=== PATIENT | female | born 1955 | race Two or more races ===

== ENCOUNTER 2018-07-01 10:53 | Inpatient (IN) | payer SELFPAY ==
--- NOTE | 2018-07-01 11:05 | EDPHY ---
H & P Time Seen by Provider: 07/01/18 11:04 HPI/ROS: CHIEF COMPLAINT: Dizziness HISTORY OF PRESENT ILLNESS: History from daughter, initially awaiting manager intel. Patient had dialysis for the 1st time ever 06/20/18 at [facility]. Presents today after last dialysis on Sunday with dizziness. Daughter is concerned she may need to be dialyzed again. No abdominal pain or vomiting, no change of mental status, no fever or chills. The patient says when she stands up or moves her head her dizziness gets worse. Not associated with trouble with speech or motor or sensory. REVIEW OF SYSTEMS: Eye: no change in vision ENT: no sore throat Cardiac: no chest pain or syncope Pulmonary: no cough or SOB Abdomen: no vomiting, diarrhea, abdominal pain Musculoskeletal: no back pain Skin: no rash Neuro: no headache Constitutional: no fever : no urinary symptoms A comprehensive 10 point review of systems is otherwise negative aside from elements mentioned in the history of present illness. PAST MEDICAL HISTORY: Kidney disease, recent dialysis. CAD stent placement, DM , hypertension, thyroid Social history: Primary language is Malaysian, director behavioral health used, daughter speaks Portuguese General Appearance: Alert and cooperative. Eyes: No scleral icterus. Pupils equal reactive extraocular motion intact, looking to the right and moving her head to the right reproduces symptoms. ENT, Mouth: Normal mucous membranes. Normal tympanic membranes. Respiratory: Normal respiratory effort, breath sounds equal, lungs are clear to auscultation. Cardiovascular: Regular rate and rhythm. Dialysis catheter present right subclavian. Gastrointestinal: Abdomen is soft and non tender. Neurological: Alert, face symmetric, normal motor and sensory in extremities. Skin: Warm and dry, no rashes. Musculoskeletal: No peripheral edema. Psychiatric: Not agitated. Emergency Department course/MDM: I-STAT and EKG performed, screening i-STAT potassium is 5. She is not clinically fluid overloaded. 1130: Case management consulted for arrangement for future dialysis needs. Meclizine 25 mg orally, more likely peripheral vertigo as compared to central. 1144: Na 128, K 5.3, BUN 55, Creat 6.9; discussed with Bhaskar, admit for dialysis as no outpatient access, hyperkalemic. Does not require emergent ED treatment for hyperkalemia. Smoking Status: Never smoked Constitutional: Initial Vital Signs Temperature (C) 37 C 07/01/18 10:55 Heart Rate 80 07/01/18 10:55 Respiratory Rate 18 07/01/18 10:55 Blood Pressure 172/74 H 07/01/18 10:55 O2 Sat (%) 93 07/01/18 10:55 O2 Delivery Mode Room Air Allergies/Adverse Reactions: Penicillins Allergy (Mild, Verified 07/01/18 10:58) GI Home Medications: Medication Instructions Recorded Ferrous Sulfate [Ferrous Sulf 325 325 mg PO DAILY 07/01/18 MG (*)] Furosemide [Lasix 80 MG (*)] 80 mg PO BID 07/01/18 amLODIPine BESYLATE [Norvasc 10 mg 10 mg PO DAILY 07/01/18 (*)] Medical Decision Making - Diagnostics EKG Interpretation: 12-lead EKG interpreted by me; official reading is in computer system. My interpretation is sinus rhythm rate 77 with normal intervals. Differential Diagnosis: Differential diagnosis considered for dizziness including but not limited to peripheral and central causes of vertigo, orthostatic causes including dehydration, and blood loss. Consult/Admit Bed Type: [place] [id number] - Data Points Laboratory Results: Laboratory Results 07/01/18 11:15 07/01/18 11:15 07/01/18 07/01/18 07/01/18 11:22 11:15 11:15 WBC 10.98 10^3/uL H 10^3/uL (3.80-9.50) RBC 2.69 10^6/uL L 10^6/uL (4.18-5.33) Hgb 8.3 g/dL L g/dL (12.6-16.3) POC Hgb 8.5 gm/dL L gm/dL (12.6-16.3) Hct 23.8 % L % (38.0-47.0) POC Hct 25 % L % (38-47) MCV 88.5 fL fL (81.5-99.8) MCH 30.9 pg pg (27.9-34.1) MCHC 34.9 g/dL g/dL (32.4-36.7) RDW 12.6 % % (11.5-15.2) Plt Count 265 10^3/uL 10^3/uL (150-400) MPV 9.9 fL fL (8.7-11.7) Neut % (Auto) 73.4 % % (39.3-74.2) Lymph % (Auto) 15.3 % % (15.0-45.0) [place] % (Auto) 7.4 % % (4.5-13.0) Eos % (Auto) 2.9 % % (0.6-7.6) Baso % (Auto) 0.4 % % (0.3-1.7) Nucleat RBC Rel Count 0.0 % % (0.0-0.2) Absolute Neuts (auto) 8.06 10^3/uL H 10^3/uL (1.70-6.50) Absolute Lymphs (auto) 1.68 10^3/uL 10^3/uL (1.00-3.00) Absolute Monos (auto) 0.81 10^3/uL H 10^3/uL (0.30-0.80) Absolute Eos (auto) 0.32 10^3/uL 10^3/uL (0.03-0.40) Absolute Basos (auto) 0.04 10^3/uL 10^3/uL (0.02-0.10) Absolute Nucleated RBC 0.00 10^3/uL 10^3/uL (0-0.01) Immature Gran % 0.6 % % (0.0-1.1) Immature Gran # 0.07 10^3/uL 10^3/uL (0.00-0.10) POC Sodium 127 mEq/L L mEq/L (135-145) Sodium 128 mEq/L L mEq/L (135-145) POC Potassium 5.0 mEq/L mEq/L (3.3-5.0) Potassium 5.3 mEq/L H mEq/L (3.3-5.0) POC Chloride 90 mEq/L L mEq/L (97-110) Chloride 89 mEq/L L mEq/L (97-110) Carbon Dioxide 25 mEq/l mEq/l (22-31) Anion Gap 14 mEq/L mEq/L (8-16) POC BUN 52 mg/dL H mg/dL (7-23) BUN 55 mg/dL H mg/dL (7-23) Creatinine 6.9 mg/dL H mg/dL (0.6-1.0) POC Creatinine 7.1 mg/dL H mg/dL (0.6-1.0) Estimated GFR 6 Glucose 264 mg/dL H mg/dL (70-100) POC Glucose 275 mg/dL H mg/dL (70-100) Calcium 8.6 mg/dL mg/dL (8.5-10.4) Total Bilirubin 0.3 mg/dL mg/dL (0.1-1.4) AST 35 IU/L IU/L (14-46) ALT 37 IU/L IU/L (9-52) Alkaline Phosphatase 128 IU/L H IU/L (38-126) Total Protein 7.3 g/dL g/dL (6.3-8.2) Albumin 3.7 g/dL g/dL (3.5-5.0) Medications Given: Discontinued Medications Meclizine HCl (Meclizine Hcl) 25 mg PO EDNOW ONE Stop: 07/01/18 11:26 Last Admin: 07/01/18 11:29 Dose: 25 mg Point of Care Test Results: Chemistry 07/01/18 11:22 POC Sodium 127 mEq/L L mEq/L (135-145) POC Potassium 5.0 mEq/L mEq/L (3.3-5.0) POC Chloride 90 mEq/L L mEq/L (97-110) POC BUN 52 mg/dL H mg/dL (7-23) POC Creatinine 7.1 mg/dL H mg/dL (0.6-1.0) POC Glucose 275 mg/dL H mg/dL (70-100) ISTAT H&H 07/01/18 11:22 POC Hgb 8.5 gm/dL L gm/dL (12.6-16.3) POC Hct 25 % L % (38-47) Departure - Departure Disposition: [facility] Acute Clinical Impression: Dizziness, Hyperkalemia Renal failure Qualifiers: Renal failure chronicity: chronic Chronic kidney disease stage: on chronic dialysis Qualified Code(s): N18.6 - End stage renal disease Condition: Good
[2018-07-01] MEDS ORDERED: MECLIZINE HCL 25 MG TAB PO ONE (11:25)
[2018-07-01 11:28] LABS: PLATELET COUNT 265 10^3/uL (150-400)
--- NOTE | 2018-07-01 11:36 | CPEKG ---
Test Reason : OPEN Blood Pressure : / mmHG Vent. Rate : 077 BPM Atrial Rate : 078 BPM P-R Int : 175 ms QRS Dur : 088 ms QT Int : 407 ms P-R-T Axes : -14 -13 067 degrees QTc Int : 461 ms Sinus rhythm Confirmed by Sin Morillo ([id number]) on 07/01/2018 11:35:49 AM Referred By: Confirmed By:Sin Morillo
[2018-07-01] MEDS ORDERED: ONDANSETRON DISINTEGRATING 4 MG TAB PO PRN (13:52)
[2018-07-01] MEDS ORDERED: ONDANSETRON 4 MG/2 ML VIAL IVP PRN (13:52)
[2018-07-01] MEDS ORDERED: ACETAMINOPHEN 325 MG TAB PO PRN (13:52)
[2018-07-01] MEDS ORDERED: D50W 25 GM/50 ML SYR IVP PRN (13:55)
--- NOTE | 2018-07-01 15:01 | SOAPPROG ---
SOMARBELLA Progress Note Assessment/Plan: Assessment/Plan: ESRD: pt recently diagnosed with ESRD and initiated on HD, does not have benefits for regular outpatient dialysis. - Will do HD today and tomorrow. - I explained to pt and family that without insurance she would not be able to get set up in an outpatient dialysis unit. - Pt plans to return to [place], family is working on setting up her medical care there before she leaves. - We discussed that pt is to return to ER if sick and will only be dialyzed for emergent signs or symptoms: dyspnea, significant volume overload hyperkalemia. Hyperkalemia: will modulate on HD. We again discussed pt should avoid high K foods, she is also on Lasix. HTN: continue home meds. Hypervolemia: will modulate on HD, also continue Lasix. Hyponatremia: will modulate on HD. Anemia: will give epo tomorrow. Subjective: HPI: Ms. Pinedo is a 63 yo F with h/o HTN and DM and has newly been diagnosed with ESRD. She is visiting from [place], has not had regular medical care at home. She was seen recently at [facility] and found to have ESRD, likely from HTN and DM. She was initiated on HD there and discharged last week after HD on Sunday. Family was told that she needed HD again on Sunday, but since she does not have an outpatient unit, they presented to ER. They did not understand what her dialysis options here are, thought she would be set up with outpatient unit. Daughter notes that she plans to go back home, maybe this weekend, but they are trying to set up their medical care there. ROS: positive per HPI and for dizziness, rest of 10-point ROS negative Objective: Vital Signs Temp Pulse Resp BP Pulse Ox 37 C 76 16 160/78 H 92 07/01/18 10:55 07/01/18 12:00 07/01/18 12:00 07/01/18 12:00 07/01/18 12:00 General: alert and oriented, no acute distress Eyes: EOMI, PERRL OP: Clear, MMM Neck: supple, no thyromegaly CV: RRR Resp: nonlabored respirations on RA Abd: Soft, NT/ND Ext: +1 edema BLE Neuro: CN II-XII grossly intact Psych: cooperative Access: RIJ tunneled catheter ICD10 Worksheet Patient Problems: Problems Problem Status Onset Dizziness Acute Hyperkalemia Acute Renal failure Acute
--- NOTE | 2018-07-01 15:41 | PDGENHP ---
History and Physical - Chief Complaint I need dialysis - History of Present Illness 63 yo female with h/o DM and ESRD, who is now dialysis dependent but has no outpatient dialysis benefits, presents to ED for dialysis needs. She denies CP or SOB, no orthopnea, mild lower extremity edema. She feels a little dizzy at times, but currently feels well. She has been followed by a clinic in [place] and they are trying to sort an option for outpatient dialysis. She had her first dialysis at [facility] 06/20/2018. Since then she has been feeling fairly well. She presents to the ED requesting dialysis. In the ED, her Creatinine is elevated to ~7. Her potassium is also slightly elevated at 5.3. She has no EKG changes. She is admitted for emergent dialysis given electrolyte abnormalities and associated symptoms of dizziness. Nephrology has been consulted. History Information - Allergies/Home Medication List Allergies/Adverse Reactions: Penicillins Allergy (Mild, Verified 07/01/18 10:58) GI Home Medications: Docusate Sodium [Colace 100 MG (*)] 100 mg PO DAILY 07/01/18 [Last Taken ] Ferrous Sulfate [Ferrous Sulf 325 MG (*)] 325 mg PO TID 07/01/18 [Last Taken 05/11] Furosemide [Lasix 80 MG (*)] 80 mg PO BID 07/01/18 [Last Taken 07/01/18] Insulin Glargine [Lantus 100 UNITS/ML (*)] 5 units SC DAILY 07/01/18 [Last Taken 07/01/18] amLODIPine BESYLATE [Norvasc 10 mg (*)] 10 mg PO DAILY 07/01/18 [Last Taken 05/11] I have personally reviewed and updated: family history, medical history, social history, surgical history - Past Medical History diabetes type 2, ESRD, hypertension - Surgical History Reports: no pertinent surgical hx - Family History Positive for: diabetes type II - Social History Smoking Status: Never smoked Alcohol Use: None Drug Use: None Additional social history: From [place] and plans to return to [place]. Here with her family. Review of Systems Review of Systems: ROS: 10pt was reviewed & negative except for what was stated in HPI & below Physical Exam Physical Exam: Temp Pulse Resp BP Pulse Ox 37 C 76 16 160/78 H 92 07/01/18 10:55 10/08/18 12:00 07/01/18 12:00 07/01/18 12:00 07/01/18 12:00 Constitutional: no apparent distress Eyes: PERRL Ears, Nose, Mouth, Throat: moist mucous membranes Cardiovascular: regular rate and rhythym Respiratory: no respiratory distress, clear to auscultation Gastrointestinal: normoactive bowel sounds, soft, non-tender abdomen Skin: warm Musculoskeletal: full muscle strength Neurologic: AAOx3 Psychiatric: interacting appropriately Lab Data & Imaging Review 07/01/18 11:15 07/01/18 11:15 WBC 10.98 10^3/uL (3.80-9.50) H 07/01/18 11:15 RBC 2.69 10^6/uL (4.18-5.33) L 07/01/18 11:15 Hgb 8.3 g/dL (12.6-16.3) L 07/01/18 11:15 POC Hgb 8.5 gm/dL (12.6-16.3) L 07/01/18 11:22 Hct 23.8 % (38.0-47.0) L 07/01/18 11:15 POC Hct 25 % (38-47) L 07/01/18 11:22 MCV 88.5 fL (81.5-99.8) 07/01/18 11:15 MCH 30.9 pg (27.9-34.1) 07/01/18 11:15 MCHC 34.9 g/dL (32.4-36.7) 07/01/18 11:15 RDW 12.6 % (11.5-15.2) 07/01/18 11:15 Plt Count 265 10^3/uL (150-400) 07/01/18 11:15 MPV 9.9 fL (8.7-11.7) 07/01/18 11:15 Neut % (Auto) 73.4 % (39.3-74.2) 07/01/18 11:15 Lymph % (Auto) 15.3 % (15.0-45.0) 07/01/18 11:15 [place] % (Auto) 7.4 % (4.5-13.0) 07/01/18 11:15 Eos % (Auto) 2.9 % (0.6-7.6) 07/01/18 11:15 Baso % (Auto) 0.4 % (0.3-1.7) 07/01/18 11:15 Nucleat RBC Rel Count 0.0 % (0.0-0.2) 07/01/18 11:15 Absolute Neuts (auto) 8.06 10^3/uL (1.70-6.50) H 07/01/18 11:15 Absolute Lymphs (auto) 1.68 10^3/uL (1.00-3.00) 07/01/18 11:15 Absolute Monos (auto) 0.81 10^3/uL (0.30-0.80) H 07/01/18 11:15 Absolute Eos (auto) 0.32 10^3/uL (0.03-0.40) 07/01/18 11:15 Absolute Basos (auto) 0.04 10^3/uL (0.02-0.10) 07/01/18 11:15 Absolute Nucleated RBC 0.00 10^3/uL (0-0.01) 07/01/18 11:15 Immature Gran % 0.6 % (0.0-1.1) 07/01/18 11:15 Immature Gran # 0.07 10^3/uL (0.00-0.10) 07/01/18 11:15 POC Sodium 127 mEq/L (135-145) L 07/01/18 11:22 Sodium 128 mEq/L (135-145) L 07/01/18 11:15 POC Potassium 5.0 mEq/L (3.3-5.0) 07/01/18 11:22 Potassium 5.3 mEq/L (3.3-5.0) H 07/01/18 11:15 POC Chloride 90 mEq/L (97-110) L 07/01/18 11:22 Chloride 89 mEq/L (97-110) L 07/01/18 11:15 Carbon Dioxide 25 mEq/l (22-31) 07/01/18 11:15 Anion Gap 14 mEq/L (8-16) 07/01/18 11:15 POC BUN 52 mg/dL (7-23) H 07/01/18 11:22 BUN 55 mg/dL (7-23) H 07/01/18 11:15 Creatinine 6.9 mg/dL (0.6-1.0) H 07/01/18 11:15 POC Creatinine 7.1 mg/dL (0.6-1.0) H 07/01/18 11:22 Estimated GFR 6 07/01/18 11:15 Glucose 264 mg/dL (70-100) H 07/01/18 11:15 POC Glucose 275 mg/dL (70-100) H 07/01/18 11:22 Calcium 8.6 mg/dL (8.5-10.4) 07/01/18 11:15 Total Bilirubin 0.3 mg/dL (0.1-1.4) 07/01/18 11:15 AST 35 IU/L (14-46) 07/01/18 11:15 ALT 37 IU/L (9-52) 07/01/18 11:15 Alkaline Phosphatase 128 IU/L (38-126) H 07/01/18 11:15 Total Protein 7.3 g/dL (6.3-8.2) 07/01/18 11:15 Albumin 3.7 g/dL (3.5-5.0) 07/01/18 11:15 Visualized and Interpreted EKG results: Yes EKG Interpretation: Positive for: normal sinsus rhythm Assessment & Plan Assessment: ESRD - non-oliguric, dialysis dependent, presenting with mild hypervolemia and hyperkalemia, non-critical -nephrology consulted, plans for dialysis today and tomorrow -renal diet -pt likely to return to [place] for ongoing dialysis needs -unable to get outpt benefits Hyperkalemia - mild, no ekg changes -dialysis per renal -cont lasix Hypertension - SBP's 160's-170's on arrival -may improve with dialysis -cont norvasc -add metoprolol Hyponatremia - possibly hypervolemic, dialysis per renal -follow Anemia - likely 2/2 CKD -epo planned for tomorrow DM type 2 - bg 200's on arrival -check a1c -cont lantus, increase to 8 u hs and add bolus insulin Full code Dispo - obs, possible discharge after dialysis tomorrow
[2018-07-01] MEDS: FERROUS SULFATE 325 MG TAB PO SCH ×2 (15:48→22:01)
[2018-07-01] MEDS: HEPARIN 5,000 UNIT/0.5 ML INJ SC SCH ×2 (15:48→22:01)
--- NOTE | 2018-07-01 16:12 | PDMN ---
Medical Necessity Medical necessity: Pt meets inpt criteria per MD order and MCG M-325, Renal Failure, Chronic, A-3 days. 63 y/o w/hx of DM and ESRD, now dialysis dependant w /no outpt dialysis benefits presents to ED w/dizziness, electrolyte abnormalities (Na 127, K 5) and creatinine 7.1 requiring emergent dialysis, PCU monitoring.
[2018-07-01] MEDS: DOCUSATE SODIUM 100 MG CAP PO SCH (18:16)
[2018-07-01] MEDS: INSULIN LISPRO 100 UNIT/ML SC SCH ×2 (19:19→22:07)
[2018-07-01] MEDS ORDERED: HEPARIN 50,000 UNIT/10 ML VIAL ONE (19:48)
[2018-07-01] MEDS: METOPROLOL TARTRATE 25 MG TAB PO SCH (22:01)
[2018-07-01] MEDS: INSULIN GLARGINE 100 UNITS/ML UNIT SC SCH (22:01)
[2018-07-02 04:30] LABS: PLATELET COUNT 236 10^3/uL (150-400)
[2018-07-02] MEDS: HEPARIN 5,000 UNIT/0.5 ML INJ SC SCH ×3 (06:03→22:13)
[2018-07-02] MEDS: INSULIN LISPRO 100 UNIT/ML SC SCH ×4 (08:35→22:18)
[2018-07-02] MEDS: METOPROLOL TARTRATE 25 MG TAB PO SCH ×2 (09:18→22:13)
[2018-07-02] MEDS: DOCUSATE SODIUM 100 MG CAP PO SCH (09:18)
[2018-07-02] MEDS: FERROUS SULFATE 325 MG TAB PO SCH ×3 (09:19→22:13)
[2018-07-02] MEDS: FUROSEMIDE 80 MG TAB PO SCH ×2 (09:19→20:41)
--- NOTE | 2018-07-02 11:44 | HOSPPROG ---
Hospitalist Progress Note Assessment/Plan: ESRD - non-oliguric, dialysis dependent, presenting with mild hypervolemia and hyperkalemia, non-critical -repeat dialysis today per renal -cont renal diet -pt likely to return to [place] for ongoing dialysis needs vs clinic in [place] for outpt dialysis, our CM will look into this -unable to get outpt benefits Hyperkalemia - resolved with dialysis -cont lasix, follow Hypertension - SBP's 160's-170's on arrival, improved with addition of Metoprolol -cont norvasc, metoprolol Hyponatremia - improving with HD Anemia - likely 2/2 CKD, hgb 6.7 this am -1 u prbc's with dialysis -epo per renal DM type 2 - bg 200's on arrival, improved, a1c pending -cont basal / bolus insulin (lantus increased to 8 u from 5 u) Full code Dispo - cont inpt for ongoing dialysis and transfusion needs, possible d/c in am Subjective: Pt feels well this am. No CP, SOB, headaches or vision changes. Appetite good. Bg's controlled. Objective: Vital Signs Temp Pulse Resp BP Pulse Ox 36.7 C 64 12 141/63 H 98 07/02/18 03:50 07/02/18 03:50 07/02/18 03:50 07/02/18 03:50 07/02/18 03:50 Laboratory Results 07/02/18 03:46 07/02/18 03:46 07/01/18 07/02/18 07/03/18 05:59 05:59 05:59 Intake Total 470 480 Balance 470 480 - Physical Exam Constitutional: no apparent distress Eyes: PERRL Ears, Nose, Mouth, Throat: moist mucous membranes Cardiovascular: regular rate and rhythym Respiratory: no respiratory distress, inspiratory crackles Gastrointestinal: normoactive bowel sounds, soft, non-tender abdomen Skin: warm Musculoskeletal: full muscle strength Neurologic: AAOx3 Psychiatric: interacting appropriately ICD10 Worksheet Patient Problems: Problems Problem Status Onset Dizziness Acute Hyperkalemia Acute Renal failure Acute
--- NOTE | 2018-07-02 14:41 | SOAPPROG ---
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 no cp sob nausea or vomiting spirits good no pain, slept OK last night Objective: Vital Signs Temp Pulse Resp BP Pulse Ox 36.8 C 71 18 149/69 H 98 07/02/18 12:00 07/02/18 12:00 07/02/18 12:00 07/02/18 12:00 07/02/18 12:00 Laboratory Results 07/02/18 03:46 07/02/18 03:46 07/01/18 07/02/18 07/03/18 05:59 05:59 05:59 Intake Total 470 480 Balance 470 480 Physical Exam - Physical Exam General Appearance: alert, no apparent distress Neck: normal inspection Respiratory: No rhonchi, No wheezing Cardiac/Chest: regular rate, rhythm, systolic murmur, No edema Abdomen: normal bowel sounds, non-tender, soft Skin: warm/dry Extremities: No swelling Neuro/Psych: alert, normal mood/affect, oriented x 3 ICD10 Worksheet Patient Problems: Problems Problem Status Onset Dizziness Acute Hyperkalemia Acute Renal failure Acute
[2018-07-02] MEDS ORDERED: EPOETIN ALFA 10,000 UNIT/ML VIAL IVP SCH (15:45)
--- NOTE | 2018-07-02 17:16 | ASMTCMCOM ---
CM Note CM Note Notes: Pt admitted through the ED stating she needed dialysis. Spoke with pt's daughter in law on the phone. Pt and are visiting from [place] and plan to return to [place] and continue health care treatment there, however family is pursuing hemodialysis treatment through [facility] in [place] and awaiting a response from that clinic. Pt received hemodialysis today and will discharge independently tomorrow to son and daughter in laws home. Pt is comfortable with this plan. [facility] able [facility] get future HD with them as pt is waiting for insurance in [place] to start before returning home for treatment. CM to follow. D/C Plan: Home independently Date Signed: 07/02/2018 05:15 PM Electronically Signed By:Aida Trejo
[2018-07-02] MEDS: INSULIN GLARGINE 100 UNITS/ML UNIT SC SCH (22:13)
[2018-07-03] MEDS ORDERED: HEPARIN 50,000 UNIT/10 ML VIAL IV ONE (03:40)
[2018-07-03] MEDS: HEPARIN 5,000 UNIT/0.5 ML INJ SC SCH (06:21)
[2018-07-03 07:16] VITALS: BP 141/79
[2018-07-03] MEDS: DOCUSATE SODIUM 100 MG CAP PO SCH (08:12)
[2018-07-03] MEDS: METOPROLOL TARTRATE 25 MG TAB PO SCH (08:12)
[2018-07-03] MEDS: FUROSEMIDE 80 MG TAB PO SCH (08:12)
[2018-07-03] MEDS: FERROUS SULFATE 325 MG TAB PO SCH (08:12)
[2018-07-03] MEDS: INSULIN LISPRO 100 UNIT/ML SC SCH (08:19)
--- NOTE | 2018-07-03 09:03 | SOAPPROG ---
EBONIE Progress Note Assessment/Plan: Assessment: ESRD, needs outpatient spot discussed outpatient HD arrangements with discharge planning, working with a dialysis unit in [place] for [facility] follow up volume overload, better after HD yesterday HTN, bp remains good DM-2, BS good today, continue therapy Anemia, received 1 unit of blood on HD yesterday Talked with [id number] on the phone today, all questions answered Plan: HD tomorrow if still in hospital home after HD trying to get back to [place] to have HD there; apparently plans have changed and she wants to stay in the for her dialysis 07/02/18 14:24 07/02/18 14:45 07/03/18 08:59 07/03/18 09:03 Subjective: feels better today no cp sob nausea vomiting or anorexia energy improving at bedside Objective: Vital Signs Temp Pulse Resp BP Pulse Ox 37.1 C 65 12 141/79 H 93 07/03/18 07:15 07/03/18 07:15 07/03/18 07:15 07/03/18 07:15 07/03/18 07:15 Laboratory Results 07/03/18 04:00 07/03/18 04:00 07/02/18 07/03/18 07/04/18 05:59 05:59 05:59 Intake Total 470 1080 Output Total 450 Balance 470 630 Physical Exam - Physical Exam General Appearance: alert Neck: normal inspection Respiratory: No rales, No rhonchi, No wheezing Cardiac/Chest: regular rate, rhythm, No edema, No friction rub Abdomen: normal bowel sounds, non-tender, soft Extremities: No swelling Neuro/Psych: alert, normal mood/affect, oriented x 3 ICD10 Worksheet Patient Problems: Problems Problem Status Onset Dizziness Acute Hyperkalemia Acute Renal failure Acute
--- NOTE | 2018-07-03 12:37 | ASMTLACE ---
AYE Length of stay for Answers: 1 day current admission Acuity / Level of Answers: Yes Care: Did the patient have an inpatient admission? Comorbidities - select Answers: Coronary Artery Disease all that apply Diabetes (uncontrolled or controlled) Moderate or severe liver or renal disease Other Notes: HTN; Hypothyroid # of Emergency department Answers: 1-2 visits in the last 6 months Social determinants Answers: Lack of community resources and/or lack of social support (no pcp, lives alone, transportation, haritha d) Score: 17 Date Signed: 07/03/2018 12:36 PM Electronically Signed By:Gracie Cabello RN
--- NOTE | 2018-07-03 12:41 | ASMTCMCOM ---
CM Note CM Note Notes: 07/03/2018 Case Management Note Met w/pt and vp software this morning to discuss d/c needs. Pt has not heard back from [facility] in [place]. Provided info for [facility]. Spoke w/ daughter in law Zhao on the phone. Provided info for further follow up. Pt stated that she plans to live in [place] until [place] insurance is approved. Pavel stated that application has not been started yet in [place]. [facility]. Spoke with daughter in law Jama in the room with Vivian from [facility]. Provided same info to [facility]. Explained to all parties that local dialysis centers would be private pay until Medicaid application is completed. Case Management d/c poc: Home independent with follow up through community providers. Date Signed: 07/03/2018 12:40 PM Electronically Signed By:Gracie Cabello RN
--- NOTE | 2018-07-03 12:42 | ASDISCHSUM ---
Discharge Information Plan Status:Home with No Needs Medically Cleared to Leave:07/03/2018 Discharge Date:07/03/2018 12:15 PM CM D/C Disposition:Home, Routine, Self-Care ADT D/C Disposition:Home, Routine, Self-Care Projected Discharge Date:07/03/2018 12:15 PM Transportation at D/C:Family Discharge Delay Reason: Follow-Up Date:07/03/2018 12:15 PM Discharge Slot: Final Diagnosis: Placement Information Patient Contact Information Contact Name:DONAVAN Relationship:Other Address:[address] [place] [address] Work Phone: City:[place] Alternate Phone: [facility]/Zip Code:[place] [address] Email: Financial Information Financial Class:Self-Pay Primary Plan Desc:SELF PAY Primary Plan Number: Secondary Plan Desc: Secondary Plan Number: Assessment Information LACE LACE Length of stay for Answers: 1 day current admission Acuity / Level of Answers: Yes Care: Did the patient have an inpatient admission? Comorbidities - select Answers: Coronary Artery Disease all that apply Diabetes (uncontrolled or controlled) Moderate or severe liver or renal disease Other Notes: HTN; Hypothyroid # of Emergency department Answers: 1-2 visits in the last 6 months Social determinants Answers: Lack of community resources and/or lack of social support (no pcp, lives alone, transportation, haritha d) Score: 17 Date Signed: 07/03/2018 12:36 PM Electronically Signed By:Gracie Caebllo RN [facility] NURYS Progress Note CM Note NURYS Note Notes: Pt admitted through the ED stating she needed dialysis. Spoke with pt's daughter in law on the phone. Pt and are visiting from [place] and plan to return to [place] and continue health care treatment there, however family is pursuing hemodialysis treatment through [facility] in [place] and awaiting a response from that clinic. Pt received hemodialysis today and will discharge independently tomorrow to son and daughter in laws home. Pt is comfortable with this plan. CM could potentially follow up with [facility] to find out if pt is able to get future HD with them as pt is waiting for insurance in [place] to start before returning home for treatment. CM to follow. D/C Plan: Home independently Date Signed: 07/02/2018 05:15 PM Electronically Signed By:Aida Trejo [facility] Progress Note CM Note CM Note Notes: 07/03/2018 Case Management Note Met w/pt and security developer this morning to discuss d/c needs. Pt has not heard back from [facility] in [place]. Provided info for [facility]. Spoke w/ daughter in law Zhao on the phone. Provided info for further follow up. Pt stated that she plans to live in [place] until [place] insurance is approved. Pavel stated that application has not been started yet in [place]. [facility]. Spoke with daughter in law Jama in the room with Vivian from [employer]. Provided same info to Evita. Explained to all parties that local dialysis centers would be private pay until Medicaid application is completed. Case Management d/c poc: Home independent with follow up through community providers. Date Signed: 07/03/2018 12:40 PM Electronically Signed By:Gracie Cabello RN Intervention Information Intervention Type:*Incorrect Registration Date of Service:07/01/2018 03:57 PM Patient Type:Observation Staff Member:ANANYA Patel, [facility] Hours: Discipline: Severity: Comment:
--- NOTE | 2018-07-04 05:42 | GDS ---
DISCHARGE DIAGNOSES: 1. End-stage renal disease, likely secondary to diabetic nephropathy, requiring hemodialysis. 2. Hyperkalemia, resolved with dialysis. 3. Hypertension, improved. 4. Hyponatremia, improved with dialysis. 5. Anemia of chronic kidney disease, status post 1 unit of packed red blood cells, as well as a dose of erythropoietin. 6. Type 2 diabetes mellitus, poorly controlled with a hemoglobin A1c of 9.2. CONSULTATIONS: Dr. Mae Farmer, nephrology. HISTORY: For details, please see history and physical dated July 01, 2018. In brief, the patient is a 63-year-old female with a history of diabetes and end-stage renal disease who recently started d ialysis but lacks outpatient dialysis benefits and then presented to the emergency department with em ergent dialysis needs. She was admitted to the hospital for further management. HOSPITAL COURSE: The patient was admitted to the cardiac telemetry unit. She had electrolyte abnorm alities on arrival including hyponatremia and hyperkalemia with a creatinine of 6.9. She had been di alyzed once at an outside hospital, and she said she was told she could no longer receive treatment t here, given her lack of benefits. She has been seen by a clinic in [place] who may be able to offer [facility] some help with outpatient dialysis. In addition, she has considered going back to [place] for ongo ing dialysis treatments. She did receive dialysis for 2 days here with correction of her electrolyte abnormalities. Her potassium is normal on the day of discharge. It was noted her blood sugars were elevated in the mid 200s on arrival. Her hemoglobin A1c was 9.2. She was taking Lantus in the outp atient setting, and the dose was increased from 5 units at h.s. to 8 units at h.s. We will defer to her outpatient primary care to determine if and when she is ready to manage a short-acting bolus insu elicia. Her blood sugars did improve here, and at discharge her blood sugar is 136. She had lengthy discussions with our case management and the use of our stock puller services who prov ided her with options to go to [facility] for ongoing dialysis needs. DISPOSITION: The patient is discharged home in stable condition. FOLLOWUP: The patient will follow up with [facility], as well as [facility] locally for [facility] care. DISCHARGE MEDICATIONS: Please see [facility] for completed outpatient medication list. Medications on discharge include metoprolol 12.5 mg p.o. b.i.d. #60, no refills. Changed medications: Lantus is increased from 5 to 8 units subcutaneous daily. She will continue all other outpatient medications as previously prescribed including iron sulfate 32 5 mg p.o. t.i.d., Norvasc 10 mg p.o. daily, Lasix 80 mg p.o. b.i.d., and docusate 100 mg p.o. daily. /[id number]/MODL
== END 2018-07-03 12:15 | disposition home or self-care (01) | DRG 640 ==
LOC: F2W 13:10 → OBSVTOIN 13:58
PROVIDERS: ADMIT Hospitalist; ATTEND Hospitalist
PROC: 5A1D70Z Performance of Urinary Filtration, Intermittent, Less than 6 Hours Per Day (ICD-10-PCS; principal; 2018-07-02)
PROC: 30233N1 Transfusion of Nonautologous Red Blood Cells into Peripheral Vein, Percutaneous Approach (ICD-10-PCS; 2018-07-02)
DX: E87.5 Hyperkalemia (principal); I12.0 Hypertensive chronic kidney disease with stage 5 chronic kidney disease or end stage renal disease; N18.6 End stage renal disease; D63.1 Anemia in chronic kidney disease; E11.21 Type 2 diabetes mellitus with diabetic nephropathy; E87.1 Hypo-osmolality and hyponatremia; Z99.2 Dependence on renal dialysis; Z79.4 Long term (current) use of insulin
CPT/HCPCS: 82435-PO; 82565-PO; 82947-PO; 84132-PO; 84295-PO; 84520-PO; 85014-PO; J0885; J1644; J1815; P9016